=== PATIENT | male | born 1995 | race American Indian/Alaskan Native ===

== ENCOUNTER 2016-12-11 10:59 | Emergency (ER) | payer SELFPAY ==
[2016-12-11] MEDS ORDERED: TORADOL IV ONE (11:20)
[2016-12-11] MEDS ORDERED: ZOFRAN IV ONE (11:20)
[2016-12-11] MEDS ORDERED: MORPHINE IV ONE (11:20)
--- NOTE | 2016-12-11 11:25 | Emergency Department Report ---
HPI - General Chief Complaint: Extremity Injury, Upper Time Seen by Provider: 12/11/16 11:17 - HPI HPI: Room 1 The patient is a 21-year-old male presenting with a chief complaint of left shoulder pain. Patient has a history of frequent dislocations of left shoulder states at approximately 10:30 while lifting an object he felt his left shoulder pop out. Patient gives his pain a score of 10/10. Location: Left shoulder Duration: Constant since approximately 10:30 Quality: Pain Severity: 10/10 Modifying factors: Movement causes pain Context: [see above] Mode of transportation: [not driving] ED Past Medical Hx - Past Medical History Previous Medical History?: Yes Additional medical history: L shoulder dislocation - Surgical History Past Surgical History?: No - Family History Family history: no significant - Social History Smoking Status: Never Smoker Substance Use Type: None (denies illicit drug use) - Medications Home Medications: Home Medications Medication Instructions Recorded Confirmed Last Taken Type Acetaminophen/Codeine 1 tab PO Q6H PRN #15 tab 11/06/14 Unknown Rx [Acetaminophen-Codeine #3 TAB] Amoxicillin 500 mg PO TID #30 tablet 11/06/14 Unknown Rx Ibuprofen [Motrin 800 MG tab] 800 mg PO Q8HR PRN #20 tablet 06/19/16 Unknown Rx traMADol [Ultram] 50 mg PO Q6HR PRN #20 tablet 06/19/16 Unknown Rx Cyclobenzaprine [Flexeril] 10 mg PO TID PRN #10 tablet 12/11/16 Unknown Rx HYDROcodone/APAP 5-325 [Simpson 1 - 2 each PO Q6HR PRN #10 tablet 12/11/16 Unknown Rx 5/325] Ibuprofen [Motrin 800 MG tab] 800 mg PO Q8HR PRN #20 tablet 12/11/16 Unknown Rx ED Review of Systems ROS: Stated complaint: LT SHOULDER INJURY Other details as noted in HPI Comment: All other systems reviewed and negative Constitutional: denies: chills, fever Eyes: denies: eye pain, eye discharge, vision change ENT: denies: ear pain, throat pain Respiratory: denies: cough, shortness of breath, wheezing Cardiovascular: denies: chest pain, palpitations Endocrine: no symptoms reported Gastrointestinal: denies: abdominal pain, nausea, diarrhea Genitourinary: denies: urgency, dysuria Musculoskeletal: arthralgia, myalgia Skin: denies: rash, lesions Neurological: denies: headache, weakness, paresthesias Psychiatric: denies: anxiety, depression Hematological/Lymphatic: denies: easy bleeding, easy bruising Physical Exam - Physical Exam Vital Signs: Vital Signs 12/11/16 11:08 Temperature 98.4 F Pulse Rate 68 Respiratory 20 Rate Blood Pressure 130/78 O2 Sat by Pulse 100 Oximetry Physical Exam: GENERAL: The patient is well-developed well-nourished male lying on stretcher with obvious deformity of the left shoulder. [] HEENT: Normocephalic. Atraumatic. Extraocular motions are intact. Patient has moist mucous membranes. NECK: Supple. Trachea midline CHEST/LUNGS: There is no respiratory distress noted. HEART/CARDIOVASCULAR: Regular. There is no tachycardia. 2+ radial pulse left wrist ABDOMEN: There is no abdominal distention. SKIN: There is no rash. There is no edema. There is no diaphoresis. NEURO: The patient is awake, alert, and oriented. The patient is cooperative. The patient has no focal neurologic deficits. The patient has normal speech. Normal sensation left upper extremity MUSCULOSKELETAL: There is deformity of the left shoulder consistent with an anterior dislocation ED Course Vital Signs 12/11/16 11:08 Temperature 98.4 F Pulse Rate 68 Respiratory 20 Rate Blood Pressure 130/78 O2 Sat by Pulse 100 Oximetry ED Medical Decision Making - Radiology Data Radiology results: image reviewed (left shoulder x-ray #1, left shoulder x-ray # 2) interpreted by me: Left shoulder x-ray #1-anterior dislocation. No fracture seen Left shoulder x-ray #2-no dislocation, no fracture seen - Differential Diagnosis shoulder dislocation, humerus fracture, AC joint separation Critical care attestation.: If time is entered above; I have spent that time in minutes in the direct care of this critically ill patient, excluding procedure time. ED Disposition Clinical Impression: Anterior dislocation of left shoulder Disposition: DISCHARGED TO HOME OR SELFCARE Is pt being admited?: No Does the pt Need Aspirin: No Condition: Stable Instructions: Shoulder Dislocation (ED) Additional Instructions: Return to the emergency department immediately should you develop worsening symptoms, fever, inability to tolerate food or liquid or any other concerns. Prescriptions: Cyclobenzaprine [Flexeril] 10 mg PO TID PRN #10 tablet PRN Reason: Muscle Spasm HYDROcodone/APAP 5-325 [Simpson 5/325] 1 - 2 each PO Q6HR PRN #10 tablet PRN Reason: Pain Ibuprofen [Motrin 800 MG tab] 800 mg PO Q8HR PRN #20 tablet PRN Reason: Pain Referrals: PRIMARY CARE, [Primary Care Provider] - 3-5 Days SHARLA CRESPO MD [Staff Physician] - 3-5 Days (Dr. Crespo is an orthopedic surgeon. Please follow up with him for further evaluation) Time of Disposition: 12:40
[2016-12-11] MEDS ORDERED: AMIDATE IV ONE (11:52)
--- NOTE | 2016-12-11 12:01 | XRay Report ---
Left shoulder 3 views: History: Posterior dislocated shoulder. Findings: The humeral head is anteroinferior to glenoid labrum suggestive of anterior dislocation. Suspicion of fracture lateral humeral head. Impression: Anterior dislocation humeral head.
--- NOTE | 2016-12-11 12:54 | XRay Report ---
Left shoulder single view: History: Postreduction. Findings: There is satisfactory alignment noted of the humeral head with glenoid. A.c. joint appears unremarkable. No obvious evidence of fracture is seen though there is suspicion of a deformity noted in the region of the lateral aspect of the humeral head. Impression: Satisfactory alignment of humeral head with glenoid.
[2016-12-11 13:57] VITALS: BP 121/70
[2016-12-11] MEDS ORDERED: TYLENOL PR ONE (15:29)
== END 2016-12-11 14:45 | disposition home or self-care (01) ==
LOC: ED 10:59
DX: S43.005A Unspecified dislocation of left shoulder joint, initial encounter (principal); X58.XXXA Exposure to other specified factors, initial encounter; Y93.9 Activity, unspecified; Y92.9 Unspecified place or not applicable; Y99.9 Unspecified external cause status
CPT/HCPCS: 23650; 73020; 73030; 96374; 96375; 99283; J1885; J2270; J2405

== ENCOUNTER 2016-12-27 19:39 | Emergency (ER) | payer SELFPAY ==
[2016-12-27] MEDS ORDERED: DIPRIVAN 10 MG/ML IV ONE ×3 (20:31→23:19)
[2016-12-27] MEDS ORDERED: KETALAR IV ONE ×4 (20:31→22:00)
--- NOTE | 2016-12-27 20:33 | Emergency Department Report ---
HPI - General Chief Complaint: Extremity Injury, Upper Time Seen by Provider: 12/27/16 20:29 - HPI HPI: His is a [id number] male who presents the emergency department from home with a suspected left shoulder dislocation after he was trying to do a follow-up at about 6 PM this evening. Patient has a history of recurrent shoulder dislocations but has never seen an orthopedist or sought treatment. He denies any other past medical history. He did not take anything for symptoms prior to presentation. He denies any numbness or paresthesias but does have decreased range of motion secondary to pain and restriction. ED Past Medical Hx - Past Medical History Previous Medical History?: No Additional medical history: L shoulder dislocation - Surgical History Past Surgical History?: No - Social History Smoking Status: Never Smoker Substance Use Type: None - Medications Home Medications: Home Medications Medication Instructions Recorded Confirmed Last Taken Type Ibuprofen [Motrin 800 MG tab] 800 mg PO Q8HR PRN #20 tablet 12/27/16 Unknown Rx ED Review of Systems ROS: Stated complaint: DISLOCATED LF SHOULDER Other details as noted in HPI Comment: All other systems reviewed and negative Constitutional: denies: chills, fever Eyes: denies: eye pain, eye discharge, vision change ENT: denies: ear pain, throat pain Respiratory: denies: cough, shortness of breath, wheezing Cardiovascular: denies: chest pain, palpitations Gastrointestinal: denies: abdominal pain, nausea, diarrhea Genitourinary: denies: urgency, dysuria Musculoskeletal: arthralgia. denies: back pain Skin: denies: rash, lesions Neurological: denies: headache, weakness, paresthesias Physical Exam - Physical Exam Vital Signs: Vital Signs 12/27/16 19:55 Temperature 98.4 F Pulse Rate 70 Respiratory 18 Rate Blood Pressure 144/90 O2 Sat by Pulse 99 Oximetry Physical Exam: GENERAL: The patient is well-developed well-nourished. HEENT: Normocephalic. Atraumatic. Extraocular motions are intact. Patient has moist mucous membranes. Pupils equal reactive to light bilaterally. NECK: Supple. Trachea is midline. CHEST/LUNGS: Clear to auscultation. There is no respiratory distress noted. HEART/CARDIOVASCULAR: Regular. There is no tachycardia. There is no gallop rub or murmur. ABDOMEN: Abdomen is soft, nontender. Patient has normal bowel sounds. There is no abdominal distention. SKIN: Skin is warm and dry. NEURO: The patient is awake, alert, and oriented. The patient is cooperative. The patient has no focal neurologic deficits. The patient has normal speech. MUSCULOSKELETAL: Patient has left shoulder deformity with the left upper extremity hanging lower in the shoulder joint and is being held in internal rotation against the body. There is tenderness to palpation to the left shoulder. Decreased range of motion of the left upper arm at the shoulder secondary to pain and restriction. Patient is neurovascularly intact with radial pulses +2 over 4 bilaterally and cap refill less than 2 seconds. ED Course Vital Signs 12/27/16 19:55 Temperature 98.4 F Pulse Rate 70 Respiratory 18 Rate Blood Pressure 144/90 O2 Sat by Pulse 99 Oximetry - Moderate Sedation Indications: fracture/dislocation redu ASA Class: I Mallampati Airway Score: 1 Preparation: medical coding specialist applied, pulse oximeter, supplemental O2 applied, suction/airway equipment at bedside, IV secured Ketamine: IV Ketamine Dose: 80 (2 doses of 40 mg, 2 different attempts) IV Propofol Dose (mgs): 100 (1 dose of 60 mg on first attempt, 40 mg on second) Complications: none Patient Tolerated Procedure: well - Orthopedic Joint Reduction Joint #1 Consent Obtained: written consent Time Out Performed: Yes Side: left Joint Reduction Location: shoulder Analgesia: moderate sedation Shoulder Technique Used (if applicable): external rotation Technique Used: traction/counter-traction Post-Reduction Neuro Exam: intact Post-Reduction Vascular Exam: intact Post Reduction X-Ray Obtained: Yes Post Reduction X-Ray Results: reduced Splint Applied: Yes Patient Tolerated Procedure: well ED Medical Decision Making - Radiology Data Radiology results: image reviewed interpreted by me: First 2 view shoulder x-ray shows anterior inferior dislocation of the left shoulder. The first post reduction 1 view left shoulder x-ray does not show any improvement. The second postreduction 1 view left shoulder x-ray shows appropriate reduction of the humeral head into the glenohumeral joint. - Medical Decision Making 21-year-old male presents the emergency department with a shoulder dislocation. Patient received moderate sedation 2 and 2 total times were made for left shoulder reduction. The first time was unsuccessful but the second time there was successful reduction of the humeral head into the glenohumeral joint. Patient was placed in an arm sling. We monitored him appropriately through station as well as up to the point where he is awake and alert. He will remain in the sling until follow-up with the orthopedist. He will return to the ER with any worsening of symptoms or any acute distress. The patient was neurovascularly intact both before and after the procedure. - Differential Diagnosis fracture, shoulder dislocation, subluxation, sprain, rotator cuff injury Critical Care Time: No Critical care attestation.: If time is entered above; I have spent that time in minutes in the direct care of this critically ill patient, excluding procedure time. ED Disposition Clinical Impression: Left shoulder pain Qualifiers: Chronicity: acute Qualified Code(s): M25.512 - Pain in left shoulder Dislocation of left shoulder joint Qualifiers: Encounter type: initial encounter Qualified Code(s): S43.005A - Unspecified dislocation of left shoulder joint, initial encounter Disposition: DISCHARGED TO HOME OR SELFCARE Is pt being admited?: No Condition: Stable Instructions: Shoulder Dislocation (ED) Additional Instructions: Please follow-up with an orthopedist in the next few days. Remain in the arm sling until you do follow-up with the orthopedist. I did a new a referral for a local orthopedist, Dr. Crespo, for follow-up. Return to the emergency department with any worsening of her symptoms or any acute distress. Prescriptions: Ibuprofen [Motrin 800 MG tab] 800 mg PO Q8HR PRN #20 tablet PRN Reason: Pain Referrals: PRIMARY CAREMD [Primary Care Provider] - 3-5 Days SHARLA CRESPO MD [Staff Physician] - 3-5 Days Time of Disposition: 22:19
[2016-12-27] MEDS ORDERED: NACL 0.9% 1000 ML 1,000 ML ONE (20:53)
[2016-12-27] MEDS ORDERED: INDERAL IV ONE (21:56)
[2016-12-27 23:18] VITALS: BP 130/88
[2016-12-27] MEDS ORDERED: NACL 0.9% 1000 ML 1,000 ML IV ONE (23:56)
--- NOTE | 2016-12-28 09:08 | XRay Report ---
Left shoulder 2 views: History: Left shoulder injury. Findings: There is anterior dislocation noted left shoulder. The humeral head is anterior and inferior to the glenoid. No obvious evidence of acute fracture. Impression: Anterior dislocation left shoulder.
--- NOTE | 2016-12-28 09:09 | XRay Report ---
Left shoulder postreduction 2 views: History: Postreduction. Findings: In single AP view, initially obtained, there is persistence of dislocation noted. The second film reveals normal alignment of humeral head and glenoid. No fracture. Impression: Second film reveals normal alignment of humeral head with glenoid
== END 2016-12-27 22:50 | disposition home or self-care (01) ==
LOC: ED 19:39
DX: S43.085A Other dislocation of left shoulder joint, initial encounter (principal); X58.XXXA Exposure to other specified factors, initial encounter; Y93.89 Activity, other specified; Y92.89 Other specified places as the place of occurrence of the external cause; Y99.8 Other external cause status
CPT/HCPCS: 23655; 73020; 73030; 96361; 96374; 99283; J2704; J7030

== ENCOUNTER 2017-03-13 13:27 | Emergency (ER) | payer SELFPAY ==
[2017-03-13] MEDS ORDERED: SUBLIMAZE IV ONE (15:36)
--- NOTE | 2017-03-13 15:45 | XRay Report ---
FINAL REPORT EXAM: XR SHOULDER 2 LT HISTORY: injury TECHNIQUE: Two views of the left shoulder. PRIORS: None. FINDINGS: No fracture. There is anterior dislocation of the left glenohumeral joint. Normal mineralization. No soft tissue abnormality. IMPRESSION: Anterior left glenohumeral joint dislocation.
[2017-03-13] MEDS ORDERED: NACL 0.9% 1000 ML 1,000 ML IV ONE (16:05)
[2017-03-13] MEDS ORDERED: KETALAR IV ONE ×2 (16:05→17:00)
[2017-03-13] MEDS ORDERED: KETALAR ONE (16:09)
--- NOTE | 2017-03-13 16:09 | Emergency Department Report ---
<SILVESTRE ROJAS - Last Filed: 03/13/17 17:51> ED Upper Extremity Inj [facility] - General Chief Complaint: Extremity Injury, Upper Stated Complaint: POSS DISLOCATED SHOULDER Time Seen by Provider: 03/13/17 15:56 - Related Data Previous Rx's Medication Instructions Recorded Last Taken Type Ibuprofen [Motrin 800 MG tab] 800 mg PO Q8HR PRN #20 tablet 03/13/17 Unknown Rx Allergies Allergy/AdvReac Type Severity Reaction Status Date / Time No Known Allergies Allergy Verified 11/06/14 13:54 ED Review of Systems ROS: Stated complaint: POSS DISLOCATED SHOULDER Other details as noted in HPI ED Past Medical Hx - Medications Home Medications: Home Medications Medication Instructions Recorded Confirmed Last Taken Type Ibuprofen [Motrin 800 MG tab] 800 mg PO Q8HR PRN #20 tablet 03/13/17 Unknown Rx ED Course Vital Signs 03/13/17 03/13/17 03/13/17 13:41 15:13 16:50 Temperature 98.2 F 98.3 F Temperature [ 97.8 F Intra-Procedure ] Temperature [ 97.8 F Pre-Procedure] Pulse Rate 67 76 Pulse Rate [ 78 Intra-Procedure ] Pulse Rate [Pre 86 -Procedure] Respiratory 18 18 Rate Respiratory 14 Rate [Intra- Procedure] Respiratory 18 Rate [Pre- Procedure] Blood Pressure 133/82 Blood Pressure 135/76 [Intra- Procedure] Blood Pressure 142/88 [Pre-Procedure] Blood Pressure 134/81 [Right] O2 Sat by Pulse 98 99 Oximetry O2 Sat by Pulse 97 Oximetry [ Intra-Procedure ] O2 Sat by Pulse 100 Oximetry [Pre- Procedure] 03/13/17 17:55 Temperature 98.4 F Temperature [ Intra-Procedure ] Temperature [ Pre-Procedure] Pulse Rate 76 Pulse Rate [ Intra-Procedure ] Pulse Rate [Pre -Procedure] Respiratory 18 Rate Respiratory Rate [Intra- Procedure] Respiratory Rate [Pre- Procedure] Blood Pressure Blood Pressure [Intra- Procedure] Blood Pressure [Pre-Procedure] Blood Pressure 126/84 [Right] O2 Sat by Pulse 98 Oximetry O2 Sat by Pulse Oximetry [ Intra-Procedure ] O2 Sat by Pulse Oximetry [Pre- Procedure] - Moderate Sedation Indications: fracture/dislocation redu ASA Class: I Mallampati Airway Score: 2 Preparation: residential caregiver applied, pulse oximeter, supplemental O2 applied, suction/airway equipment at bedside, IV secured Ketamine: IV Ketamine Dose: 40 Complications: none Patient Tolerated Procedure: well Additional Comments: Initial procedure was unsuccessful. Patient was sedated a second time with a total of 20 mg of Etomidate. Patient tolerated both sedations well. Total sedation time was 20 minutes. - Orthopedic Joint Reduction Joint #1 Post Reduction X-Ray Results: not reduced (first post reduction film shows joint not reduced) Joint #2 Additional Comments: Second reduction attempt was completed by me. Critical care attestation.: If time is entered above; I have spent that time in minutes in the direct care of this critically ill patient, excluding procedure time. ED Disposition Clinical Impression: Shoulder dislocation Disposition: DC-01 TO HOME OR SELFCARE Condition: Stable Instructions: Shoulder Dislocation (ED) Additional Instructions: immobilizer to l shoulder rest ice meds as ordered follow up with ortho MD as instructed Prescriptions: Ibuprofen [Motrin 800 MG tab] 800 mg PO Q8HR PRN #20 tablet PRN Reason: Pain Referrals: PRIMARY CARE, [Primary Care Provider] - 3-5 Days SHARLA CRESPO MD [Staff Physician] - 3-5 Days <CHRIS MACEDO A - Last Filed: 03/13/17 18:14> ED Upper Extremity Inj HPI - General Source: patient Mode of arrival: Ambulatory Limitations: No Limitations - History of Present Illness MD Complaint: Injury to:: left -: Sudden Other Extremity Injury: Shoulder: Left Other Injuries: none Handedness: right Place: other (at mall) Improves With: immobilization Worsens With: movement of extremity Context: other (reached back to give kid cup and shoulder came out. ant on xray. this is recurrent for pt. ) Associated Symptoms: denies other symptoms ED Review of Systems Comment: denies cig/etoh or drugs Constitutional: no symptoms reported Eyes: as per HPI ENT: as per HPI Respiratory: no symptoms reported Cardiovascular: as per HPI Endocrine: no symptoms reported Gastrointestinal: as per HPI Genitourinary: as per HPI Musculoskeletal: other (lue pain w movement) Skin: as per HPI Neurological: as per HPI Psychiatric: as per HPI Hematological/Lymphatic: as per HPI ED Past Medical Hx - Past Medical History Previous Medical History?: Yes Additional medical history: L shoulder dislocation - Surgical History Past Surgical History?: No - Family History Family history: no significant - Social History Smoking Status: Never Smoker Substance Use Type: None ED Physical Exam - General Limitations: No Limitations General appearance: alert - Head Head exam: Present: atraumatic - Eye Eye exam: Present: normal appearance - ENT ENT exam: Present: normal exam - Neck Neck exam: Present: normal inspection - Respiratory Respiratory exam: Present: normal lung sounds bilaterally, respiratory distress - Cardiovascular Cardiovascular Exam: Present: regular rate - GI/Abdominal GI/Abdominal exam: Present: soft - Extremities Exam Extremities exam: Present: normal inspection, normal capillary refill. Absent: full ROM (pain w movement l shoulder. good radial and ulner pulse. rapid cap refll. ) - Back Exam Back exam: Present: normal inspection - Neurological Exam Neurological exam: Present: alert, altered, oriented X3 - Psychiatric Psychiatric exam: Present: normal affect, normal mood - Skin Skin exam: Present: warm, dry, intact, normal color ED Course - Reevaluation(s) Reevaluation #1: 03/13/17 16:09 xray noted RN preparing for reduction l shoulder Reevaluation #2: 03/13/17 16:30 l shoulder reduced w moderate sedation fentanyl iv at 1600 then ketamine 40 mg iv o2 2L nc abc intact entire procedure vss tolerated well reduced w external rotation and counter traction immobilizer applied xray ordered pt monitored post procedure. Reevaluation #3: 03/13/17 xray noted w hum ant reduction no 2 p etomodate 10 mg iv x 2 Dr Ilia Rojas at bedside 2nd attempt to reduce external rotation, counter traction, rotation nv intact abc intact entire procedure vss Reevaluation #4: 03/13/17 17:47 xray post reduction shoulder successfully reduced vss abc intact immob remains in place pt on phone. Reevaluation #5: 03/13/17 18:13 vss nad n/v intact immobilizer intact - Orthopedic Joint Reduction Joint #1 Consent Obtained: verbal consent Time Out Performed: Yes Side: left Joint Reduction Location: shoulder Analgesia: moderate sedation Shoulder Technique Used (if applicable): other (external rotation) Technique Used: direct manipulation Post-Reduction Neuro Exam: intact Post-Reduction Vascular Exam: intact Post Reduction X-Ray Obtained: Yes Post Reduction X-Ray Results: other (film p) Splint Applied: Yes Patient Tolerated Procedure: well Additional Comments: vss abc intact during and after moderate sedation. Dr. Rojas at bedside Joint #2 Consent Obtained: verbal consent Time Out Performed: Yes Side: left Joint Reduction Location: shoulder Analgesia: moderate sedation Shoulder Technique Used (if applicable): traction/counter-traction, external rotation Technique Used: traction/counter-traction Post-Reduction Neuro Exam: intact Post-Reduction Vascular Exam: intact Post Reduction X-Ray Obtained: Yes Post Reduction X-Ray Results: reduced Splint Applied: Yes Patient Tolerated Procedure: well ED Medical Decision Making - Radiology Data Radiology results: image reviewed anterior dislocation l shoulder - Medical Decision Making recurrent l shoulder dislocation nv intact reduced per note Dr. Rojas at bedside for moderate sedation reduction successful dc and fu ortho ED Disposition Is pt being admited?: No Does the pt Need Aspirin: No Time of Disposition: 18:12
[2017-03-13] MEDS ORDERED: AMIDATE IV ONE (16:49)
[2017-03-13 17:57] VITALS: BP 126/84
--- NOTE | 2017-03-14 10:28 | XRay Report ---
LEFT SHOULDER, ONE VIEW History: Postreduction film. Findings: The anterior, inferior dislocation at the left glenohumeral joint is unchanged since the exam performed earlier today at 1353 hrs. There is normal articulation at the a.c. joint. Impression: Persistent dislocation at the left shoulder.
--- NOTE | 2017-03-19 15:17 | XRay Report ---
Left shoulder single view postreduction: Findings: There is normal alignment noted of the humeral head in relation to the glenoid. No fracture or dislocation. Impression: Normal alignment of humeral head with glenoid.
== END 2017-03-13 18:56 | disposition home or self-care (01) ==
LOC: ED 13:27
DX: S43.005A Unspecified dislocation of left shoulder joint, initial encounter (principal); X58.XXXA Exposure to other specified factors, initial encounter; Y93.9 Activity, unspecified; Y92.9 Unspecified place or not applicable; Y99.9 Unspecified external cause status
CPT/HCPCS: 23650; 73020; 73030; 99284; J3010

== ENCOUNTER 2017-04-23 17:29 | Emergency (ER) | payer SELFPAY ==
[2017-04-23] MEDS ORDERED: TORADOL IV ONE (20:44)
--- NOTE | 2017-04-23 20:49 | Emergency Department Report ---
HPI - General Chief Complaint: Extremity Problem,Nontraumatic Time Seen by Provider: 04/23/17 20:39 - HPI HPI: Room 26 The patient is a 21-year-old male presenting with a chief complaint left shoulder pain. The patient has a history of frequent dislocations of his left shoulder and states today at 17:00 while swimming he felt his left shoulder pop out of socket. Patient states it is a crushing pain whenever he moves but if he is still there is no pain. The patient states he has never followed up with an orthopedic surgeon for his shoulder dislocations Location: Left shoulder Duration: Constant since 17:00 Quality: "Crushing" Severity: Moderate Modifying factors: [see above] Context: [see above] Mode of transportation: [not driving] ED Past Medical Hx - Past Medical History Previous Medical History?: No Additional medical history: L shoulder dislocation - Surgical History Past Surgical History?: No - Family History Family history: no significant - Social History Smoking Status: Never Smoker Substance Use Type: None - Medications Home Medications: Home Medications Medication Instructions Recorded Confirmed Last Taken Type Ibuprofen [Motrin 800 MG tab] 800 mg PO Q8HR PRN #20 tablet 03/13/17 Unknown Rx HYDROcodone/APAP 5-325 [[place] 1 - 2 each PO Q6HR PRN #10 tablet 04/23/17 Unknown Rx 5/325] Ibuprofen [Motrin 800 MG tab] 800 mg PO Q8HR PRN #20 tablet 04/23/17 Unknown Rx ED Review of Systems ROS: Stated complaint: DISLOCATED LT SHOULDER Other details as noted in HPI Comment: All other systems reviewed and negative Constitutional: denies: chills, fever Eyes: denies: eye pain, eye discharge, vision change ENT: denies: ear pain, throat pain Respiratory: denies: cough, shortness of breath, wheezing Cardiovascular: denies: chest pain, palpitations Endocrine: no symptoms reported Gastrointestinal: denies: abdominal pain, nausea, diarrhea Genitourinary: denies: urgency, dysuria Musculoskeletal: arthralgia Neurological: denies: headache, weakness, paresthesias Psychiatric: denies: anxiety, depression Hematological/Lymphatic: denies: easy bleeding, easy bruising Physical Exam - Physical Exam Vital Signs: Vital Signs 04/23/17 04/23/17 04/23/17 18:40 19:28 19:30 Temperature 98.2 F Pulse Rate 72 Respiratory 18 Rate Blood Pressure 139/79 136/78 O2 Sat by Pulse 99 98 99 Oximetry 04/23/17 19:51 Temperature Pulse Rate Respiratory 17 Rate Blood Pressure O2 Sat by Pulse Oximetry Physical Exam: GENERAL: The patient is well-developed well-nourished male sitting on stretcher appearing to be in mild discomfort. [] HEENT: Normocephalic. Atraumatic. Extraocular motions are intact. Patient has moist mucous membranes. NECK: Supple. Trachea midline CHEST/LUNGS: Clear to auscultation. There is no respiratory distress noted. HEART/CARDIOVASCULAR: Regular. There is no tachycardia. 2+ left radial pulse ABDOMEN: There is no abdominal distention. SKIN: There is no rash. There is no edema. There is no diaphoresis. NEURO: The patient is awake, alert, and oriented. The patient is cooperative. Normal sensation left upper extremity. The patient has normal speech MUSCULOSKELETAL: There is obvious deformity of the left shoulder ED Course Vital Signs 04/23/17 04/23/17 04/23/17 18:40 19:28 19:30 Temperature 98.2 F Pulse Rate 72 Respiratory 18 Rate Blood Pressure 139/79 136/78 O2 Sat by Pulse 99 98 99 Oximetry 04/23/17 19:51 Temperature Pulse Rate Respiratory 17 Rate Blood Pressure O2 Sat by Pulse Oximetry ED Medical Decision Making - Radiology Data Radiology results: image reviewed (left shoulder x-ray #1, left shoulder x-ray # 2) interpreted by me: Left shoulder x-ray #1-anterior dislocation of the left shoulder. No fracture Left shoulder x-ray #2 (post reduction)-no dislocation, no fracture. Positive Hill-Sachs deformity - Differential Diagnosis shoulder fracture, shoulder dislocation Critical care attestation.: If time is entered above; I have spent that time in minutes in the direct care of this critically ill patient, excluding procedure time. ED Disposition Clinical Impression: Closed anterior dislocation of left shoulder Disposition: DC-01 TO HOME OR SELFCARE Is pt being admited?: No Does the pt Need Aspirin: No Condition: Stable Instructions: Shoulder Dislocation (ED) Additional Instructions: Return to the emergency department immediately should you develop worsening symptoms, fever, inability to tolerate food or liquid or any other concerns. Prescriptions: HYDROcodone/APAP 5-325 [[place] 5/325] 1 - 2 each PO Q6HR PRN #10 tablet PRN Reason: Pain Ibuprofen [Motrin 800 MG tab] 800 mg PO Q8HR PRN #20 tablet PRN Reason: Pain Referrals: RIYA HAYNES MD [Staff Physician] - 3-5 Days (Dr. Haynes is an orthopedic surgeon. Please follow up with him for further evaluation) Time of Disposition: 22:05 Blank Doc - Documentation Documentation: The patient required sedation for closed reduction left shoulder dislocation. The risks, benefits, and alternatives were discussed with the patient and/or the family who consented. The patient had a screening history and exam completed and there are no contraindications to sedation. The patient has been NPO for 5 hours and has an ASA designation of 2. The patient was placed on monitors and was under constant nursing observation. Under my direct supervision the patient was given etomidate 12 mg IV. An appropriate level of sedation was achieved. The patient remained hemodynamically stable with normal oxygen saturations during the procedure. There were no complications related to the sedation. Patient was observed until mental status returned to baseline. 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 The sedation lasted 10 minutes The left anterior shoulder dislocation was reduced using and modified Tangela maneuver. A palpable reduction was noted. Post reduction xrays revealed appropriate reduction.
[2017-04-23] MEDS ORDERED: AMIDATE IV ONE (21:07)
--- NOTE | 2017-04-23 22:10 | XRay Report ---
FINAL REPORT PROCEDURE: XR SHOULDER 2+V LT TECHNIQUE: Left shoulder radiographs including AP views in internal and external rotation and abduction. CPT 91140 HISTORY: LEFT SHOULDER pain and deformity COMPARISON: No prior studies are available for comparison. FINDINGS: There is anterior dislocation of the left glenohumeral joint. There is no fracture. Soft tissues are unremarkable. IMPRESSION: Anterior shoulder dislocation.
[2017-04-23 22:20] VITALS: BP 119/70
--- NOTE | 2017-04-23 23:23 | XRay Report ---
FINAL REPORT PROCEDURE: XR SHOULDER 1V LT TECHNIQUE: Left shoulder radiographs including AP views in internal and external rotation and abduction. CPT 28585 HISTORY: post reduction COMPARISON: Earlier today FINDINGS: Left glenohumeral joint has been successfully reduced. Glenohumeral joint is in proper alignment. There is deformity of the humeral head consistent with a Hill-Sachs fracture. The clavicle, acromioclavicular joint and scapula appear normal. Soft tissues are normal. IMPRESSION: Glenohumeral joint is in proper alignment. There is deformity of the humeral head consistent with a Hill-Sachs fracture.
[2017-04-24] MEDS ORDERED: AMIDATE IV ONE (01:34)
== END 2017-04-23 22:45 | disposition home or self-care (01) ==
LOC: ED 17:29
DX: S43.005A Unspecified dislocation of left shoulder joint, initial encounter (principal); X58.XXXA Exposure to other specified factors, initial encounter; Y93.9 Activity, unspecified; Y92.9 Unspecified place or not applicable; Y99.9 Unspecified external cause status
CPT/HCPCS: 23650; 73020; 73030; 96374; 99284; J1885

== ENCOUNTER 2017-05-05 21:55 | Emergency (ER) | payer SELFPAY ==
[2017-05-05] MEDS ORDERED: NACL 0.9% 1000 ML 1,000 ML ONE (23:32)
[2017-05-05] MEDS ORDERED: AMIDATE IV ONE ×2 (23:32→23:46)
--- NOTE | 2017-05-05 23:44 | Emergency Department Report ---
ED General Adult HPI - General Chief complaint: Shoulder Injury Stated complaint: LT SHOULDER DISLOCATED Time Seen by Provider: 05/05/17 23:43 Source: patient Mode of arrival: Ambulatory Limitations: No Limitations - History of Present Illness Initial comments: Patient is a 21-year-old male. Who presents with left shoulder dislocation. Patient states that symptoms started a couple hours ago. He states that the pain is a 9 out 10 moving his shoulder makes the pain worse nothing makes it better. The onset was sudden and it is severe. It is an achy type of pain and it does not radiate. Patient has a history of left shoulder dislocations. He states that his shoulder got pulled I got dislocated. Patient has no other complaints. - Related Data Previous Rx's Medication Instructions Recorded Last Taken Type Ibuprofen [Motrin 800 MG tab] 800 mg PO Q8HR PRN #20 tablet 03/13/17 Unknown Rx HYDROcodone/APAP 5-325 [[place] 1 - 2 each PO Q6HR PRN #10 tablet 04/23/17 Unknown Rx 5/325] Ibuprofen [Motrin 800 MG tab] 800 mg PO Q8HR PRN #20 tablet 04/23/17 Unknown Rx Allergies Allergy/AdvReac Type Severity Reaction Status Date / Time No Known Allergies Allergy Verified 11/06/14 13:54 ED Review of Systems ROS: Stated complaint: LT SHOULDER DISLOCATED Other details as noted in HPI Constitutional: denies: chills, fever Eyes: denies: eye pain, eye discharge, vision change ENT: denies: ear pain, throat pain Respiratory: denies: cough, shortness of breath, wheezing Cardiovascular: denies: chest pain, palpitations Endocrine: no symptoms reported Gastrointestinal: denies: abdominal pain, nausea, diarrhea Genitourinary: denies: urgency, dysuria Musculoskeletal: as per HPI, arthralgia, other (left shoulder pain). denies: back pain, joint swelling Skin: denies: rash, lesions Neurological: denies: headache, weakness, paresthesias Psychiatric: denies: anxiety, depression Hematological/Lymphatic: denies: easy bleeding, easy bruising ED Past Medical Hx - Past Medical History Previous Medical History?: Yes Additional medical history: L shoulder dislocation - Surgical History Past Surgical History?: No - Social History Smoking Status: Never Smoker Substance Use Type: None - Medications Home Medications: Home Medications Medication Instructions Recorded Confirmed Last Taken Type Ibuprofen [Motrin 800 MG tab] 800 mg PO Q8HR PRN #20 tablet 03/13/17 Unknown Rx HYDROcodone/APAP 5-325 [[place] 1 - 2 each PO Q6HR PRN #10 tablet 04/23/17 Unknown Rx 5/325] Ibuprofen [Motrin 800 MG tab] 800 mg PO Q8HR PRN #20 tablet 04/23/17 Unknown Rx ED Physical Exam - General Limitations: No Limitations General appearance: alert, in no apparent distress - Head Head exam: Present: atraumatic, normocephalic - Eye Eye exam: Present: normal appearance - ENT ENT exam: Present: mucous membranes moist - Neck Neck exam: Present: normal inspection - Respiratory Respiratory exam: Present: normal lung sounds bilaterally. Absent: respiratory distress - Cardiovascular Cardiovascular Exam: Present: regular rate, normal rhythm. Absent: systolic murmur, diastolic murmur, rubs, gallop - GI/Abdominal GI/Abdominal exam: Present: soft, normal bowel sounds - Rectal Rectal exam: Present: deferred - Extremities Exam Extremities exam: Present: other (dislocated left shoulder patient is neurovascularly intact deformity on left humeral head) - Back Exam Back exam: Present: normal inspection - Neurological Exam Neurological exam: Present: alert, oriented X3 - Psychiatric Psychiatric exam: Present: normal affect, normal mood - Skin Skin exam: Present: warm, dry, intact, normal color. Absent: rash ED Course Vital Signs 05/05/17 05/05/17 05/05/17 22:34 22:53 23:00 Temperature 98.5 F Temperature [ Intra-Procedure ] Temperature [ Post-Procedure] Temperature [ Pre-Procedure] Pulse Rate 84 86 71 Pulse Rate [ Intra-Procedure ] Pulse Rate [ Post-Procedure] Pulse Rate [Pre -Procedure] Respiratory 20 22 16 Rate Respiratory Rate [Intra- Procedure] Respiratory Rate [Post- Procedure] Respiratory Rate [Pre- Procedure] Blood Pressure 120/81 129/79 Blood Pressure [Intra- Procedure] Blood Pressure [Post-Procedure ] Blood Pressure [Pre-Procedure] O2 Sat by Pulse 100 97 Oximetry O2 Sat by Pulse Oximetry [ Intra-Procedure ] O2 Sat by Pulse Oximetry [Post -Procedure] O2 Sat by Pulse Oximetry [Pre- Procedure] 05/05/17 05/05/17 05/05/17 23:11 23:21 23:30 Temperature Temperature [ Intra-Procedure ] Temperature [ Post-Procedure] Temperature [ Pre-Procedure] Pulse Rate 80 78 83 Pulse Rate [ Intra-Procedure ] Pulse Rate [ Post-Procedure] Pulse Rate [Pre -Procedure] Respiratory 22 22 16 Rate Respiratory Rate [Intra- Procedure] Respiratory Rate [Post- Procedure] Respiratory Rate [Pre- Procedure] Blood Pressure 129/79 126/80 128/80 Blood Pressure [Intra- Procedure] Blood Pressure [Post-Procedure ] Blood Pressure [Pre-Procedure] O2 Sat by Pulse 99 98 100 Oximetry O2 Sat by Pulse Oximetry [ Intra-Procedure ] O2 Sat by Pulse Oximetry [Post -Procedure] O2 Sat by Pulse Oximetry [Pre- Procedure] 05/05/17 05/05/17 05/05/17 23:35 23:37 23:41 Temperature Temperature [ 97.9 F Intra-Procedure ] Temperature [ Post-Procedure] Temperature [ 97.9 F Pre-Procedure] Pulse Rate 81 75 Pulse Rate [ 89 Intra-Procedure ] Pulse Rate [ Post-Procedure] Pulse Rate [Pre 82 -Procedure] Respiratory 25 H 25 H Rate Respiratory 16 Rate [Intra- Procedure] Respiratory Rate [Post- Procedure] Respiratory 18 Rate [Pre- Procedure] Blood Pressure 112/63 112/63 Blood Pressure 112/63 [Intra- Procedure] Blood Pressure [Post-Procedure ] Blood Pressure 126/80 [Pre-Procedure] O2 Sat by Pulse 99 98 Oximetry O2 Sat by Pulse 99 Oximetry [ Intra-Procedure ] O2 Sat by Pulse Oximetry [Post -Procedure] O2 Sat by Pulse 100 Oximetry [Pre- Procedure] 05/05/17 05/05/17 05/05/17 23:45 23:50 23:51 Temperature Temperature [ Intra-Procedure ] Temperature [ 97.9 F Post-Procedure] Temperature [ Pre-Procedure] Pulse Rate 77 77 Pulse Rate [ Intra-Procedure ] Pulse Rate [ 84 Post-Procedure] Pulse Rate [Pre -Procedure] Respiratory 17 19 Rate Respiratory Rate [Intra- Procedure] Respiratory 16 Rate [Post- Procedure] Respiratory Rate [Pre- Procedure] Blood Pressure 136/87 123/80 Blood Pressure [Intra- Procedure] Blood Pressure 130/81 [Post-Procedure ] Blood Pressure [Pre-Procedure] O2 Sat by Pulse 97 98 Oximetry O2 Sat by Pulse Oximetry [ Intra-Procedure ] O2 Sat by Pulse 100 Oximetry [Post -Procedure] O2 Sat by Pulse Oximetry [Pre- Procedure] 05/06/17 05/06/17 05/06/17 00:00 00:11 00:21 Temperature Temperature [ Intra-Procedure ] Temperature [ 98.1 F Post-Procedure] Temperature [ Pre-Procedure] Pulse Rate 84 88 90 Pulse Rate [ Intra-Procedure ] Pulse Rate [ 94 H Post-Procedure] Pulse Rate [Pre -Procedure] Respiratory 24 18 13 Rate Respiratory Rate [Intra- Procedure] Respiratory 20 Rate [Post- Procedure] Respiratory Rate [Pre- Procedure] Blood Pressure 139/91 139/91 128/100 Blood Pressure [Intra- Procedure] Blood Pressure 139/94 [Post-Procedure ] Blood Pressure [Pre-Procedure] O2 Sat by Pulse 98 100 97 Oximetry O2 Sat by Pulse Oximetry [ Intra-Procedure ] O2 Sat by Pulse 100 Oximetry [Post -Procedure] O2 Sat by Pulse Oximetry [Pre- Procedure] 05/06/17 05/06/17 05/06/17 00:24 00:27 00:30 Temperature Temperature [ 98.1 F Intra-Procedure ] Temperature [ 98.1 F Post-Procedure] Temperature [ Pre-Procedure] Pulse Rate 77 Pulse Rate [ 94 H Intra-Procedure ] Pulse Rate [ 93 H Post-Procedure] Pulse Rate [Pre -Procedure] Respiratory 20 Rate Respiratory 18 Rate [Intra- Procedure] Respiratory 18 Rate [Post- Procedure] Respiratory Rate [Pre- Procedure] Blood Pressure 128/75 Blood Pressure 128/100 [Intra- Procedure] Blood Pressure 121/74 [Post-Procedure ] Blood Pressure [Pre-Procedure] O2 Sat by Pulse 96 Oximetry O2 Sat by Pulse 99 Oximetry [ Intra-Procedure ] O2 Sat by Pulse 99 Oximetry [Post -Procedure] O2 Sat by Pulse Oximetry [Pre- Procedure] 05/06/17 05/06/17 05/06/17 00:41 00:51 01:01 Temperature Temperature [ Intra-Procedure ] Temperature [ Post-Procedure] Temperature [ Pre-Procedure] Pulse Rate 82 82 86 Pulse Rate [ Intra-Procedure ] Pulse Rate [ Post-Procedure] Pulse Rate [Pre -Procedure] Respiratory 20 13 15 Rate Respiratory Rate [Intra- Procedure] Respiratory Rate [Post- Procedure] Respiratory Rate [Pre- Procedure] Blood Pressure 128/75 126/74 122/75 Blood Pressure [Intra- Procedure] Blood Pressure [Post-Procedure ] Blood Pressure [Pre-Procedure] O2 Sat by Pulse 100 100 99 Oximetry O2 Sat by Pulse Oximetry [ Intra-Procedure ] O2 Sat by Pulse Oximetry [Post -Procedure] O2 Sat by Pulse Oximetry [Pre- Procedure] 05/06/17 05/06/17 01:11 01:12 Temperature Temperature [ Intra-Procedure ] Temperature [ Post-Procedure] Temperature [ Pre-Procedure] Pulse Rate 96 H Pulse Rate [ Intra-Procedure ] Pulse Rate [ Post-Procedure] Pulse Rate [Pre -Procedure] Respiratory 20 18 Rate Respiratory Rate [Intra- Procedure] Respiratory Rate [Post- Procedure] Respiratory Rate [Pre- Procedure] Blood Pressure 122/75 Blood Pressure [Intra- Procedure] Blood Pressure [Post-Procedure ] Blood Pressure [Pre-Procedure] O2 Sat by Pulse 99 100 Oximetry O2 Sat by Pulse Oximetry [ Intra-Procedure ] O2 Sat by Pulse Oximetry [Post -Procedure] O2 Sat by Pulse Oximetry [Pre- Procedure] - Reevaluation(s) Reevaluation #1: 05/06/17 00:18 Initial reduction I was unsuccessful I will re-dose patient with etomidate and I will try again Reevaluation #2: 05/06/17 01:19 Patient's left shoulder has been successfully reduced patient has tolerated by mouth I we'll send patient home. - Moderate Sedation Indications: fracture/dislocation redu ASA Class: I Mallampati Airway Score: 1 Time of Last PO Intake: 20:00 Preparation: estimation manager applied, pulse oximeter, supplemental O2 applied, suction/airway equipment at bedside, IV secured IV Etomidate Dose (mgs): 30 (Had to sedate patient twice ) Complications: none Patient Tolerated Procedure: well - Orthopedic Joint Reduction Joint #1 Consent Obtained: verbal consent Time Out Performed: Yes Side: left Joint Reduction Location: shoulder Analgesia: moderate sedation Shoulder Technique Used (if applicable): external rotation (Tangela's method), other Post-Reduction Neuro Exam: intact Post-Reduction Vascular Exam: intact Post Reduction X-Ray Obtained: Yes Post Reduction X-Ray Results: reduced Splint Applied: No (Patient was placed in a sling ) Patient Tolerated Procedure: well ED Medical Decision Making - Radiology Data Radiology results: report reviewed, image reviewed Left shoulder x-ray: Left shoulder dislocation Left shoulder x-ray: Successful reduction of left shoulder. - Medical Decision Making Chief medical diagnosis: Left shoulder dislocation differential medical diagnosis: AC separation, humeral head fracture I will get xray. XRAY shows dislocation patient requires IV etomidate and oxygen monitoring equipment. Patient's left shoulder will be placed in a sling and swath he tolerated procedure well x-ray shows reduction of left shoulder. Critical care attestation.: If time is entered above; I have spent that time in minutes in the direct care of this critically ill patient, excluding procedure time. ED Disposition Clinical Impression: Closed anterior dislocation of left shoulder Qualifiers: Encounter type: initial encounter Qualified Code(s): S43.015A - Anterior dislocation of left humerus, initial encounter Left shoulder pain Qualifiers: Chronicity: acute Qualified Code(s): M25.512 - Pain in left shoulder Disposition: DC-01 TO HOME OR SELFCARE Is pt being admited?: No Does the pt Need Aspirin: No Condition: Stable Instructions: Shoulder Dislocation (ED) Referrals: PRIMARY CARE, [Primary Care Provider] - 3-5 Days Time of Disposition: 01:27
[2017-05-05] MEDS ORDERED: NACL 0.9% 1000 ML 1,000 ML IV ONE (23:46)
[2017-05-06] MEDS ORDERED: AMIDATE IV ONE (00:53)
[2017-05-06 01:27] VITALS: BP 122/75
--- NOTE | 2017-05-06 01:42 | XRay Report ---
FINAL REPORT PROCEDURE: XR SHOULDER 1V LT TECHNIQUE: LEFT shoulder radiograph, single frontal view. HISTORY: shoulder reduction COMPARISON: 05/05/2017 FINDINGS: Fracture(s): There deformity of the humeral head which could be a chronic Hill-Sachs deformity. Joint space(s): There is normal alignment of the glenohumeral joint. Soft tissues: Normal. Bone mineralization: Normal. Foreign bodies: None. IMPRESSION: Successful reduction of the left glenohumeral joint.
--- NOTE | 2017-05-06 01:44 | XRay Report ---
FINAL REPORT PROCEDURE: XR SHOULDER 1V LT TECHNIQUE: LEFT shoulder radiograph, single frontal view. HISTORY: reduction COMPARISON: No prior studies are available for comparison. FINDINGS: Fracture(s): None. Joint space(s): There is anterior dislocation of the left glenohumeral joint. Soft tissues: Normal. Bone mineralization: Normal. Foreign bodies: None. IMPRESSION: Anterior left shoulder dislocation.
--- NOTE | 2017-05-06 01:49 | XRay Report ---
FINAL REPORT PROCEDURE: XR SHOULDER 2+V LT TECHNIQUE: LEFT shoulder radiographs including AP views in internal and external rotation. CPT 34557 HISTORY: LEFT SHOULDER PAIN COMPARISON: 04/23/2017 FINDINGS: Fracture (s) and/or Dislocation(s): There is residual anterior dislocation of the left glenohumeral joint.. Joint space(s): There is no significant degenerative arthrosis.. Soft tissues: Normal . Bone mineralization: Normal . Foreign bodies: None . IMPRESSION: Anterior dislocation of the left glenohumeral joint.
== END 2017-05-06 01:48 | disposition home or self-care (01) ==
LOC: ED 21:55
DX: S43.015A Anterior dislocation of left humerus, initial encounter (principal); X58.XXXA Exposure to other specified factors, initial encounter; Y93.9 Activity, unspecified; Y92.9 Unspecified place or not applicable; Y99.9 Unspecified external cause status
CPT/HCPCS: 23650; 73020; 73030; 96360; 99283; J7030

== ENCOUNTER 2018-06-22 15:11 | Emergency (ER) | payer OTHER ==
[2018-06-22 16:36] VITALS: BP 118/77
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
[2018-06-22 18:05] LABS: Basophils % (Auto) 0.4 % (0.0-1.8); Eosinophils % (Auto) 0.4 % (0.0-4.3); Hematocrit 44.5 % (35.5-45.6); Hemoglobin 15.4 gm/dl (11.8-15.2); Lymphocytes # (Auto) 1.6 K/mm3 (1.2-5.4); Lymphocytes % (Auto) 25.2 % (13.4-35.0); Mean Corpuscular HGB Conc 35 % (32-34); Mean Corpuscular Hemoglobin 29 pg (28-32); Mean Corpuscular Volume 84 fl (84-94); Monocytes # (Auto) 0.7 K/mm3 (0.0-0.8); Monocytes % (Auto) 10.2 % (0.0-7.3); Platelet Count 307 K/mm3 (140-440); Red Blood Count 5.31 M/mm3 (3.65-5.03); Red Cell Distribution Width 12.9 % (13.2-15.2)
[2018-06-22 18:29] LABS: BUN/Creatinine Ratio 9; Blood Urea Nitrogen 8 mg/dL (9-20); Calcium 8.5 mg/dL (8.4-10.2); Hemolysis Index 8; Lipase 18 units/L (13-60)
--- NOTE | 2018-06-22 19:04 | Cat Scan Report ---
FINAL REPORT PROCEDURE: CT HEAD/BRAIN WO CON TECHNIQUE: Computerized tomography of the head was performed without contrast material. HISTORY: headache/dizziness COMPARISON: No prior studies are available for comparison. FINDINGS: There is no CT evidence of intracranial mass, hemorrhage, acute territorial infarction, or hydrocephalus. The intracranial arteries are symmetric in density. Calvarium is intact. Visualized paranasal sinuses and mastoids are aerated. IMPRESSION: No CT evidence of acute abnormality
--- NOTE | 2018-06-22 19:14 | Cat Scan Report ---
FINAL REPORT EXAM: CT ABDOMEN PELVIS W CON HISTORY: abd pain TECHNIQUE: Spiral CT scanning of the abdomen and pelvis after the uneventful administration of IV contrast. Multiplanar reformations. PRIORS: None. FINDINGS: Abdomen: Visualized lung bases grossly unremarkable. No radiopaque gallstones. Liver without significant abnormality. Spleen without significant abnormality. Pancreas without significant abnormality. Kidneys without significant abnormality. Adrenal glands without significant abnormality. Pelvis: Bowel grossly unremarkable. Appendix within normal limits. No significant free peritoneal fluid, discrete abscess or apparent adenopathy. Abdominal aorta non-aneurysmal. Axial skeleton grossly unremarkable. IMPRESSION: 1. No acute findings.
--- NOTE | 2018-06-22 19:28 | Cat Scan Report ---
FINAL REPORT EXAM: CT CERVICAL SPINE WO CON HISTORY: neck/head pain TECHNIQUE: Spiral CT scanning of the cervical spine, with axial images and multiplanar reformations. PRIORS: None. FINDINGS: Well-corticated lucency in right lateral C1 ring probably congenital or developmental variant. No acute compression deformity or gross malalignment of cervical vertebral bodies. No acute fracture identified. No acute, osseous central spinal canal encroachment. Paraspinal soft tissues grossly unremarkable. IMPRESSION: 1. No acute compression deformity or apparent fracture in the cervical spine.
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
== END 2018-06-22 21:35 | disposition home or self-care (01) ==
LOC: ED 15:11
DX: S39.91XA Unspecified injury of abdomen, initial encounter (principal); V69.9XXA Occupant (driver) (passenger) of heavy transport vehicle injured in unspecified traffic accident, initial encounter; Y93.89 Activity, other specified; Y92.89 Other specified places as the place of occurrence of the external cause; Y99.8 Other external cause status
CPT/HCPCS: 36415; 70450; 72125; 74177; 80048; 83690; 85025; 99284; Q9967

== ENCOUNTER 2020-08-07 21:59 | Emergency (ER) | payer SELFPAY ==
[2020-08-08] MEDS ORDERED: ETOMIDATE 20 MG/10 ML INJ IV ONE (00:39)
[2020-08-08] MEDS ORDERED: SODIUM CHLORIDE 0.9% 1000 ML 1,000 ML IV ONE (00:39)
[2020-08-08] MEDS ORDERED: propofoL 200 MG/20 ML VIAL IV ONE (00:39)
--- NOTE | 2020-08-08 00:40 | XRay Report ---
RIGHT SHOULDER, 3 VIEWS INDICATION / CLINICAL INFORMATION: pain s/p fall on R shoulder while skating. COMPARISON: None available. FINDINGS: There is anterior dislocation of the glenohumeral joint. There is a 4 mm calcification adjacent to th e greater tuberosity probably representing a small avulsion fracture. I suspect there is a Hill-Sachs lesion present as well as. AC joint alignment is maintained. Visualized right ribs are intact. IMPRESSION: Anterior dislocation of the glenohumeral joint. Probable small 4 mm avulsion fracture adj acent to the humeral head. Signer Name: Sweta Peguero MD Signed: 08/08/2020 12:35 AM Workstation Name: [email or web address]
--- NOTE | 2020-08-08 00:40 | Emergency Department Report ---
ED Upper Extremity Inj HPI - General Chief Complaint: Extremity Injury, Upper Stated Complaint: RT SHOULDER INJURY Time Seen by Provider: 08/08/20 00:35 Source: patient Mode of arrival: Ambulatory Limitations: No Limitations - History of Present Illness Initial Comments: Patient is a 24-year-old male that presents emergency room with complaints of right shoulder pain. Patient states he has a history of shoulder dislocation and feels like he dislocated his right shoulder. Patient states the pain is a 10 out of 10. Patient dates the pain is better with rest and worse with movement. Patient denies fever and chills. Patient denies chest pain or shortness of breath. Patient denies allergy to medication. Patient states he is never had a problem with any type of anesthetic medication. Patient's last intake was 4 hours ago. Patient denies recent travel. Patient denies recent international travel. Patient denies exposure to the novel coronavirus. Patient denies sick contacts. Patient denies fever and chills. Patient denies cough. Patient denies diarrhea. Patient denies coming in contact with anybody with symptoms of the novel coronavirus. Complaint: Injury to:: right, shoulder -: Sudden, This evening Other Extremity Injury: Shoulder: Right Other Injuries: none Handedness: right Place: other (At [facility]) Severity scale (0 -10): 10 Improves With: rest Worsens With: immobilization, movement of extremity Context: fall Associated Symptoms: heard/felt popping sensat. denies: weakness, numbness, neck pain, suspects foreign body, nausea/vomiting - Related Data Previous Rx's Medication Instructions Recorded Last Taken Type Ibuprofen [Motrin 800 MG tab] 800 mg PO Q8HR PRN #20 tablet 03/13/17 Unknown Rx HYDROcodone/APAP 5-325 [[place] 1 - 2 each PO Q6HR PRN #10 tablet 04/23/17 Unknown Rx 5/325] Ibuprofen [Motrin 800 MG tab] 800 mg PO Q8HR PRN #20 tablet 04/23/17 Unknown Rx Allergies Allergy/AdvReac Type Severity Reaction Status Date / Time No Known Allergies Allergy Verified 11/06/14 13:54 ED Review of Systems ROS: Stated complaint: RT SHOULDER INJURY Other details as noted in HPI Constitutional: denies: chills, fever Eyes: denies: eye pain, eye discharge, vision change ENT: denies: ear pain, throat pain Respiratory: denies: cough, shortness of breath, wheezing Cardiovascular: denies: chest pain, palpitations Endocrine: no symptoms reported Gastrointestinal: denies: abdominal pain, nausea, diarrhea Genitourinary: denies: urgency, dysuria Musculoskeletal: denies: back pain, joint swelling, arthralgia Skin: denies: rash, lesions Neurological: denies: headache, weakness, paresthesias Psychiatric: denies: anxiety, depression Hematological/Lymphatic: denies: easy bleeding, easy bruising ED Past Medical Hx - Past Medical History Previous Medical History?: Yes Additional medical history: L shoulder dislocation - Surgical History Past Surgical History?: No - Family History Family history: no significant - Social History Smoking Status: Never Smoker Substance Use Type: None - Medications Home Medications: Home Medications Medication Instructions Recorded Confirmed Last Taken Type Ibuprofen [Motrin 800 MG tab] 800 mg PO Q8HR PRN #20 tablet 03/13/17 Unknown Rx HYDROcodone/APAP 5-325 [[place] 1 - 2 each PO Q6HR PRN #10 tablet 04/23/17 Unknown Rx 5/325] Ibuprofen [Motrin 800 MG tab] 800 mg PO Q8HR PRN #20 tablet 04/23/17 Unknown Rx ED Physical Exam - General Limitations: No Limitations General appearance: alert, in no apparent distress - Head Head exam: Present: atraumatic, normocephalic - Eye Eye exam: Present: normal appearance - ENT ENT exam: Present: mucous membranes moist - Neck Neck exam: Present: normal inspection - Respiratory Respiratory exam: Present: normal lung sounds bilaterally. Absent: respiratory distress - Cardiovascular Cardiovascular Exam: Present: regular rate, normal rhythm. Absent: systolic murmur, diastolic murmur, rubs, gallop - GI/Abdominal GI/Abdominal exam: Present: soft, normal bowel sounds - Rectal Rectal exam: Present: deferred - Extremities Exam Extremities exam: Present: normal inspection - Back Exam Back exam: Present: normal inspection - Neurological Exam Neurological exam: Present: alert, oriented X3 - Psychiatric Psychiatric exam: Present: normal affect, normal mood - Skin Skin exam: Present: warm, dry, intact, normal color. Absent: rash ED Course Vital Signs 08/07/20 08/08/20 08/08/20 23:53 00:35 00:45 Temperature 98.6 F Pulse Rate 80 78 Pulse Rate [ Intra-Procedure ] Pulse Rate [ Post-Procedure] Pulse Rate [Pre -Procedure] Respiratory 17 21 29 H Rate Respiratory Rate [Intra- Procedure] Respiratory Rate [Post- Procedure] Respiratory Rate [Pre- Procedure] Blood Pressure 114/76 Blood Pressure [Intra- Procedure] Blood Pressure [Post-Procedure ] Blood Pressure [Pre-Procedure] O2 Sat by Pulse 95 Oximetry O2 Sat by Pulse Oximetry [ Intra-Procedure ] O2 Sat by Pulse Oximetry [Post -Procedure] O2 Sat by Pulse Oximetry [Pre- Procedure] 08/08/20 08/08/20 08/08/20 00:54 00:59 01:00 Temperature Pulse Rate 96 H Pulse Rate [ 92 H Intra-Procedure ] Pulse Rate [ Post-Procedure] Pulse Rate [Pre 89 -Procedure] Respiratory 25 H Rate Respiratory 22 Rate [Intra- Procedure] Respiratory Rate [Post- Procedure] Respiratory 22 Rate [Pre- Procedure] Blood Pressure 133/87 Blood Pressure 134/78 [Intra- Procedure] Blood Pressure [Post-Procedure ] Blood Pressure 134/86 [Pre-Procedure] O2 Sat by Pulse 100 Oximetry O2 Sat by Pulse 100 Oximetry [ Intra-Procedure ] O2 Sat by Pulse Oximetry [Post -Procedure] O2 Sat by Pulse 100 Oximetry [Pre- Procedure] 08/08/20 08/08/20 08/08/20 01:05 01:15 01:25 Temperature Pulse Rate 75 Pulse Rate [ Intra-Procedure ] Pulse Rate [ 87 83 78 Post-Procedure] Pulse Rate [Pre -Procedure] Respiratory 25 H Rate Respiratory Rate [Intra- Procedure] Respiratory 22 22 22 Rate [Post- Procedure] Respiratory Rate [Pre- Procedure] Blood Pressure 133/76 Blood Pressure [Intra- Procedure] Blood Pressure 126/74 125/83 134/80 [Post-Procedure ] Blood Pressure [Pre-Procedure] O2 Sat by Pulse 100 Oximetry O2 Sat by Pulse Oximetry [ Intra-Procedure ] O2 Sat by Pulse 100 100 100 Oximetry [Post -Procedure] O2 Sat by Pulse Oximetry [Pre- Procedure] 08/08/20 08/08/20 08/08/20 01:31 01:45 01:52 Temperature Pulse Rate 84 79 20 L Pulse Rate [ Intra-Procedure ] Pulse Rate [ Post-Procedure] Pulse Rate [Pre -Procedure] Respiratory 19 21 76 H Rate Respiratory Rate [Intra- Procedure] Respiratory Rate [Post- Procedure] Respiratory Rate [Pre- Procedure] Blood Pressure 124/81 125/78 Blood Pressure [Intra- Procedure] Blood Pressure [Post-Procedure ] Blood Pressure [Pre-Procedure] O2 Sat by Pulse Oximetry O2 Sat by Pulse Oximetry [ Intra-Procedure ] O2 Sat by Pulse Oximetry [Post -Procedure] O2 Sat by Pulse Oximetry [Pre- Procedure] 08/08/20 08/08/20 02:01 02:15 Temperature Pulse Rate 79 80 Pulse Rate [ Intra-Procedure ] Pulse Rate [ Post-Procedure] Pulse Rate [Pre -Procedure] Respiratory 15 15 Rate Respiratory Rate [Intra- Procedure] Respiratory Rate [Post- Procedure] Respiratory Rate [Pre- Procedure] Blood Pressure 128/81 128/83 Blood Pressure [Intra- Procedure] Blood Pressure [Post-Procedure ] Blood Pressure [Pre-Procedure] O2 Sat by Pulse Oximetry O2 Sat by Pulse Oximetry [ Intra-Procedure ] O2 Sat by Pulse Oximetry [Post -Procedure] O2 Sat by Pulse Oximetry [Pre- Procedure] - Reevaluation(s) Reevaluation #1: I discussed x-ray results with patient. Patient agrees to have reduction and moderate sedation. Patient signed consent. I discussed fully the procedures with patient. Timeout done. 08/08/20 00:39 Reevaluation #2: Patient's right shoulder was reduced without difficulty. See procedure note. Patient will be monitored until return to baseline. 08/08/20 01:02 Reevaluation #3: Patient is alert and oriented x4. Patient states his shoulder pain has resolved. Patient is currently in a sling. 08/08/20 01:22 Reevaluation #4: Patient is alert and oriented x4. Patient ambulatory in the ER. Patient tolerating p.o. intake. I discussed all results and clinical findings with patient. I discussed plan of care with patient. Patient agrees with plan of care. Patient is stable for discharge. Patient will be discharged home. Patient given discharge instructions. Patient voiced understanding of discharge instructions. 08/08/20 02:13 ED Medical Decision Making - Radiology Data Radiology results: report reviewed, image reviewed interpreted by me: First shoulder x-ray: No fracture, soft tissue normal, dislocation noted. Second shoulder x-ray: No fracture, soft tissue normal, adequate reduction of humeral head. RIGHT SHOULDER, 3 VIEWS INDICATION / CLINICAL INFORMATION: pain s/p fall on R shoulder while skating. COMPARISON: None available. FINDINGS: There is anterior dislocation of the glenohumeral joint. There is a 4 mm calcification adjacent to the greater tuberosity probably representing a small avulsion fracture. I suspect there is a Hill- Sachs lesion present as well as. AC joint alignment is maintained. Visualized right ribs are intact. IMPRESSION: Anterior dislocation of the glenohumeral joint. Probable small 4 mm avulsion fracture adjacent to the humeral head. - Medical Decision Making Patient is a 24-year-old male who presents emergency room with right shoulder pain. Patient had an initial x-ray done which showed a right shoulder dislocation. Patient's then was consented for moderate sedation and a right shoulder reduction. Respiratory nurse at bedside the entire procedure. Patient tolerated procedure well. Patient's shoulder was reduced and a repeat x-ray was done and showed a satisfactory reduction. Patient was monitored for adequate amount of time until the patient returned to baseline. Prior to discharge, the patient was amatory and tolerated p.o. intake. Patient given discharge instructions. Patient stable for discharge. - Differential Diagnosis Shoulder pain, shoulder dislocation. Sprain, strain, fracture Critical Care Time: Yes Critical care time in (mins) excluding proc time.: 35 Critical care attestation.: If time is entered above; I have spent that time in minutes in the direct care of this critically ill patient, excluding procedure time. Critical Care Time: 35 minutes ED Disposition Clinical Impression: Right shoulder pain Qualifiers: Chronicity: acute Qualified Code(s): M25.511 - Pain in right shoulder Shoulder dislocation Qualifiers: Encounter type: initial encounter Laterality: right Qualified Code(s): S43.004A - Unspecified dislocation of right shoulder joint, initial encounter Avulsion fracture of medial epicondyle of humerus Qualifiers: Encounter type: initial encounter Fracture type: closed Fracture alignment: nondisplaced Laterality: right Qualified Code(s): S42.444A - Nondisplaced fracture (avulsion) of medial epicondyle of right humerus, initial encounter for closed fracture Disposition: DC-01 TO HOME OR SELFCARE Is pt being admited?: No Does the pt Need Aspirin: No Condition: Stable Instructions: Moderate Conscious Sedation, Adult, Care After, Shoulder Dislocation, [id number] Additional Instructions: Patient to follow-up with primary care in 2 to 3 days. Patient to follow-up with orthopedist in 2 to 3 days. Patient to rest. Patient to increase water. Patient to avoid strenuous exercise or heavy lifting until cleared by orthopedist. Patient to take Tylenol or ibuprofen as needed for pain. Patient to return to the ER if condition worsens, changes or new symptoms arise. Referrals: RIYA ROBLEDO MD [Staff Physician] - 2-3 Days Time of Disposition: 02:17
[2020-08-08 02:18] VITALS: BP 128/83
--- NOTE | 2020-08-08 02:47 | XRay Report ---
RIGHT SHOULDER SINGLE VIEW INDICATION / CLINICAL INFORMATION: reduction. Anterior dislocation COMPARISON: None available. FINDINGS: Single view of the shoulder was obtained following reduction. Previously noted anterior dislocation h as been successfully reduced. Alignment is normal. Hill-Sachs lesion is noted on the humerus. Signer Name: Sweta Peguero MD Signed: 08/08/2020 2:42 AM Workstation Name: [email or web address]
== END 2020-08-08 02:30 | disposition home or self-care (01) ==
LOC: ED 21:59
DX: S43.004A Unspecified dislocation of right shoulder joint, initial encounter (principal); Z79.899 Other long term (current) drug therapy; X58.XXXA Exposure to other specified factors, initial encounter; Y93.89 Activity, other specified; Y92.89 Other specified places as the place of occurrence of the external cause; Y99.8 Other external cause status
CPT/HCPCS: 23650; 73020; 73030; 96360; 99284; J7030; J2704